=== PATIENT | female | born 1990 | race Caucasian/White ===

== ENCOUNTER 2024-02-14 09:48 | Inpatient (IN) | payer BC ==
[2024-02-13 13:01] LABS: Hemoglobin 13.9 g/dL (12.0-15.5); Mean Corpuscular HGB CONC 36.6 g/dL (32.0-36.0); Mean Corpuscular Hemoglobin 31.2 pg (27.0-33.0); Mean Corpuscular Volume 85.2 fl (81.6-98.3); Mean Platelet Volume 9.7 fl (7.4-10.4); Platelet Count 218 10x3/uL (150-450); RBC Distribution Width 13.2 % (11.5-14.5); Red Blood Cell (RBC) Count 4.46 10x6/uL (3.90-5.03); White Blood Cell (WBC) Count 10.6 10x3/uL (3.5-10.5)
[2024-02-13 13:15] LABS: Syphilis Antibody Nonreactive (Nonreactive); Syphilis Antibody Index 0.06 S/CO (<1.00 Non-Reactive)
[2024-02-13 13:17] LABS: Hep B Surf Ag Non-Reactive S/CO (NonReactive)
[2024-02-14 10:30] VITALS: BMI 33.1
[2024-02-14] MEDS ORDERED: Famotidine/PF 20 mg/2ml Vial SLOW IVP PRN (11:38)
[2024-02-14] MEDS ORDERED: Promethazine HCl 25 MG/ML VIAL IM PRN ×2 (11:38→17:34)
[2024-02-14] MEDS ORDERED: hydrALAZINE 20 MG/ML VIAL SLOW IVP PRN ×2 (11:38→17:00)
[2024-02-14] MEDS ORDERED: Ondansetron PF 4 MG/2 ML Vial IVP PRN ×3 (11:38→17:34)
[2024-02-14] MEDS ORDERED: Bicitra 30 ML UDCUP PO PRN (11:38)
[2024-02-14] MEDS ORDERED: CEFAZOLIN 2 GM in Sodium Chloride 0.9% 100 ML IVPB SCH (11:45)
[2024-02-14] MEDS ORDERED: Bupivacaine 0.25% HCL 30 ML VIAL ONE (11:57)
[2024-02-14] MEDS ORDERED: Lactated Ringer's 1,000 ML IV SCH (13:16)
[2024-02-14] MEDS: Oxytocin 30 units/NS 500 ML 500 ML IV SCH (14:24)
[2024-02-14] MEDS ORDERED: Bisacodyl 10 MG SUPP PR PRN (17:00)
[2024-02-14] MEDS ORDERED: HYDROcodone/Acetaminophen 5/325 mg Tablet PO PRN ×2 (17:00)
[2024-02-14] MEDS ORDERED: diphenhydrAMINE 25 MG CAP PO PRN (17:00)
[2024-02-14] MEDS ORDERED: Lanolin Ointment 7 GM TUBE TOP PRN (17:00)
[2024-02-14] MEDS ORDERED: Acetaminophen 325 MG TAB PO PRN (17:00)
[2024-02-14 17:31] LABS: #Basophils 0.03 10x3/uL (0.0-0.2); #Eosinphils 0.01 10x3/uL (0.0-0.5); #Monocytes 0.45 10x3/uL (0.0-1.1); #Neutrophils 15.57 10x3/uL (1.5-8.4); %Basophils 0.2 % (0.0-2.0); %Eosinophils 0.1 % (0.0-6.0); %Lymphocytes 5.6 % (18.0-47.0); %Monocytes 2.6 % (0.0-10.0); %Neutrophils 90.6 % (40.0-75.0); Hematocrit 36.5 % (34.9-44.5); Hemoglobin 13.1 g/dL (12.0-15.5); Mean Corpuscular HGB CONC 35.9 g/dL (32.0-36.0); Mean Corpuscular Hemoglobin 31.2 pg (27.0-33.0); Mean Corpuscular Volume 86.9 fl (81.6-98.3); Mean Platelet Volume 9.7 fl (7.4-10.4); Platelet Count 214 10x3/uL (150-450); RBC Distribution Width 13.2 % (11.5-14.5); White Blood Cell (WBC) Count 17.2 10x3/uL (3.5-10.5)
[2024-02-14] MEDS ORDERED: Moisturizing Cream (Eucerin) 113 GM JAR TOP PRN (17:34)
[2024-02-14] MEDS ORDERED: Naloxone HCl 0.4 mg/ml Vial IV PRN (17:34)
[2024-02-14] MEDS ORDERED: Meperidine HCl/PF 25 MG (1 mL) VIAL SLOW IVP PRN (17:34)
[2024-02-14] MEDS ORDERED: fentaNYL 50 mcg/mL 1 mL Vial SLOW IVP PRN (17:34)
[2024-02-14] MEDS ORDERED: diphenhydrAMINE 50 MG/ML VIAL IVP PRN (17:34)
[2024-02-14] MEDS ORDERED: Naloxone HCl 0.4 mg/ml Vial IVP PRN ×2 (17:34)
[2024-02-14] MEDS ORDERED: Communication Order-Pharmacy FS SCH (17:45)
[2024-02-14] MEDS: Ketorolac Tromethamine 30 MG (1 mL) VIAL IVP SCH (18:27)
[2024-02-14] MEDS ORDERED: Ibuprofen 800 MG TAB PO SCH (20:00)
[2024-02-14] MEDS: Ferrous Sulfate 325 MG TAB PO SCH (22:12)
[2024-02-14] MEDS: Docusate 100 MG CAP PO SCH (22:49)
[2024-02-15 04:46] LABS: Hematocrit 31.2 % (34.9-44.5); Hemoglobin 11.1 g/dL (12.0-15.5); Mean Corpuscular HGB CONC 35.6 g/dL (32.0-36.0); Mean Corpuscular Volume 87.2 fl (81.6-98.3); Mean Platelet Volume 9.8 fl (7.4-10.4); Platelet Count 179 10x3/uL (150-450); RBC Distribution Width 13.2 % (11.5-14.5); Red Blood Cell (RBC) Count 3.58 10x6/uL (3.90-5.03); White Blood Cell (WBC) Count 10.1 10x3/uL (3.5-10.5)
[2024-02-15] MEDS: Ketorolac Tromethamine 30 MG (1 mL) VIAL IVP PRN (04:48)
[2024-02-15] MEDS ORDERED: HYDROcodone/Acetaminophen 5/325 mg Tablet PO PRN (05:45)
[2024-02-15] MEDS: Sodium Chloride 0.9% 100 ML ONE (07:43)
[2024-02-15] MEDS: Oxytocin 10 UNITS/ML VIAL ONE ×2 (07:43→07:44)
[2024-02-15] MEDS: Lactated Ringer's 1,000 ML IV SCH (07:43)
[2024-02-15] MEDS: CEFAZOLIN 2 GM VIAL ONE (07:43)
[2024-02-15] MEDS: Dexmedetomidine 200 MCG/2 ML VIAL ONE (07:43)
[2024-02-15] MEDS: Morphine PF 10 MG/10 ML VIAL ONE (07:43)
[2024-02-15] MEDS: KETAMINE 100 MG/ML (5ML VIAL) ONE (07:44)
[2024-02-15] MEDS: Ondansetron PF 4 MG/2 ML Vial ONE (07:44)
[2024-02-15] MEDS: Ketorolac Tromethamine 30 MG (1 mL) VIAL ONE (07:44)
[2024-02-15] MEDS: Dexamethasone 4 mg/ml Vial ONE (07:44)
[2024-02-15] MEDS: Boostrix 0.5 ML (Tdap) VIAL (>/=7 yrs of age) IM ONE (07:44)
[2024-02-15] MEDS: Prenatal Vitamin 1 TAB PO SCH (08:45)
[2024-02-15] MEDS: HYDROcodone/Acetaminophen 5/325 mg Tablet PO PRN (10:08)
[2024-02-15] MEDS: Ibuprofen 800 MG TAB PO SCH (13:25)
[2024-02-16 08:22] VITALS: BP 127/77; TEMP 97.5
== END 2024-02-16 11:55 | disposition home or self-care (01) | DRG 788 ==
LOC: CSHLD 09:48 → CSHPP 16:18
PROVIDERS: ADMIT Obstetrics & Gynecology; ATTEND Obstetrics & Gynecology
PROC: 10D00Z1 Extraction of Products of Conception, Low, Open Approach (ICD-10-PCS; principal; 2024-02-14)
DX: O34.211 Maternal care for low transverse scar from previous cesarean delivery (principal); Z37.0 Single live birth; Z3A.39 39 weeks gestation of pregnancy; Z88.0 Allergy status to penicillin
CPT/HCPCS: 36415; 51702; 85025; 85027; 86780; 86850; 86900; 86901; 87340; J0665; J1100; J1885; J2274; J2405; J2590